=== PATIENT | female | born 1965 | race Caucasian/White ===

== ENCOUNTER 2016-09-14 15:55 | Emergency (ER) | payer BC ==
[2016-09-14 15:59] VITALS: BP 132/82
[2016-09-14 16:29] LABS: CHLORIDE,CL 102 mmol/L (98-107); SODIUM,NA 138 mmol/L (136-145)
[2016-09-14] MEDS ORDERED: cefTRIAXone 1 GM Vial IM ONE (17:07)
--- NOTE | 2016-09-14 17:11 | EDM.PDOC ---
ED HPI GENERAL MEDICAL PROBLEM - General Chief Complaint: General Stated Complaint: fever, sore throat, ear ache Time Seen by Provider: 09/14/16 15:58 Source of Information: Reports: Patient History Limitations: Reports: No limitations - History of Present Illness INITIAL COMMENTS - FREE TEXT/NARRATIVE: Two day history of sore throat, fever, congestion, ear pain. No significant cough. No vomiting/bowel changes. No complaint of UTI symptoms. Feels fatigued. Also somewhat achy in general. Took Advil earlier today. 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) Throat Pain Score (Numeric/FACES): 7 ear ache Pain Score (Numeric/FACES): 7 - Related Data Allergies Allergy/AdvReac Type Severity Reaction Status Date / Time amoxicillin [From Augmentin] Allergy Vomiting Verified 09/14/16 16:17 clavulanic acid Allergy Vomiting Verified 09/14/16 16:17 [From Augmentin] Home Meds: Home Meds Fluticasone Propionate [Flonase Allergy Relief] 2 spray NS DAILY 09/14/16 [ History] Nitrofurantoin Monohyd/M-Cryst [Macrobid 100 mg Capsule] 100 mg PO BID #10 capsule 09/14/16 [Rx] Past Medical History - Infectious Disease History Infectious Disease History: Reports: Chicken pox Social & Family History - Tobacco Use Smoking Status *Q: Never Smoker Second Hand Smoke Exposure: No - Alcohol Use Days Per Week of Alcohol Use: 1 Number of Drinks Per Day: 1 Total Drinks Per Week: 1 Date of Last Drink: 09/12/16 Time of Last Drink: 19:00 - Recreational Drug Use Recreational Drug Use: No ED ROS GENERAL - Review of Systems Review Of Systems: See Below Constitutional: Reports: fever, malaise, fatigue, decreased appetite. Denies: chills, weakness, diaphoresis HEENT: Reports: Ear pain, Rhinitis, Sinus problem, Throat pain. Denies: Dental pain, Ear discharge, Eye discharge, Eye pain, Throat swelling, Vision change Respiratory: Reports: no symptoms. Denies: shortness of breath, wheezing, pleuritic chest pain, cough Cardiovascular: Reports: No symptoms GI/Abdominal: Reports: Decreased appetite. Denies: Abdominal pain, Constipation , Diarrhea, Hematochezia, Vomiting : Reports: no symptoms Musculoskeletal: Reports: other (muscle aches) Skin: Reports: no symptoms Neurological: Reports: no symptoms Psychiatric: Reports: No symptoms ED EXAM, GENERAL - Physical Exam Exam: See Below Exam Limited By: No limitations General Appearance: alert, WD/WN, no apparent distress Eye Exam: bilateral eye: EOMI, normal inspection, PERRL Ears: normal external exam, normal canal, hearing grossly normal, normal TMs Nose: No: nasal swelling, nasal drainage Throat/Mouth: Normal lips, Normal voice, No airway compromise, Other ( pharyngeal erythema noted) Head: atraumatic, normocephalic Neck: normal inspection, supple, non-tender, full range of motion. No: lymphadenopathy (L), lymphadenopathy (R) Respiratory/Chest: no respiratory distress, lungs clear, normal breath sounds, no accessory muscle use Cardiovascular: normal peripheral pulses, tachycardia Peripheral Pulses: 2+: radial (L), radial (R) GI/Abdominal: soft, non tender Back Exam: No: CVA tenderness (L), CVA tenderness (R) Extremities: normal inspection, normal capillary refill Neurological: alert, oriented, normal cognition, normal gait Psychiatric: normal affect, normal mood Skin Exam: Warm, Dry, Intact, Normal color Course - Vital Signs Last Recorded V/S: Last Vital Signs Temp 37.6 C 09/14/16 15:58 Pulse 106 H 09/14/16 16:00 Resp 19 09/14/16 15:58 BP 132/82 09/14/16 15:58 Pulse Ox 99 09/14/16 15:58 - Orders/Labs/Meds Orders: Active Orders 24 hr Category Date Time Status CULTURE URINE [] Routine Lab 09/14/16 16:53 Uncollected INFLUENZA A+B AG SCREEN [] Stat Lab 09/14/16 16:10 Received STREP SCRN A RAPID W CULT CONF [] Stat Lab 09/14/16 16:54 Uncollected Labs: Laboratory Tests 09/14/16 09/14/16 09/14/16 Range/Units 16:10 16:10 16:10 WBC 13.1 H (4.0-10.2) K/uL RBC 4.67 (3.77-5.09) M/uL Hgb 13.3 (11.7-15.5) g/dL Hct 39.7 (34.0-46.0) % MCV 85.0 (84.0-98.0) fL MCH 28.5 (28.2-33.3) pg MCHC 33.5 (31.7-36.0) g/dL RDW 13.9 (11.2-14.1) % Plt Count 192 D (150-350) K/uL Neut % (Auto) 79.6 (45.0-80.0) % Lymph % (Auto) 10.4 (10.0-50.0) % [place] % (Auto) 8.6 (2.0-14.0) % Eos % (Auto) 1.2 (0.0-5.0) % Baso % (Auto) 0.2 (0.0-2.0) % Neut # 10.40 H (1.40-7.00) K/uL Lymph # 1.36 (0.50-3.50) K/uL Roosevelt # 1.13 H (0.00-1.00) K/uL Eos # 0.16 (0.00-0.50) K/uL Baso # 0.02 (0.00-0.20) K/uL Sodium 138 (136-145) mmol/L Potassium 4.0 (3.5-5.1) mmol/L Chloride 102 (98-107) mmol/L Carbon Dioxide 25.9 (21.0-32.0) mmol/L BUN 9 (7-18) mg/dL Creatinine 0.72 (0.51-1.17) mg/dL Est Cr Clr Drug Dosing 81.62 mL/min Estimated GFR (MDRD) > 60 mL/min Glucose 105 (74-106) mg/dL Calcium 8.8 (8.5-10.1) mg/dL Total Bilirubin 0.2 (0.2-1.0) mg/dL AST 12 L (15-37) U/L ALT 21 (12-78) U/L Alkaline Phosphatase 86 (46-116) IU/L Total Protein 7.6 (6.4-8.2) g/dL Albumin 3.8 (3.4-5.0) g/dL Specimen Type Urinvoid Urine Color Yellow Urine Appearance Cloudy Urine pH 6.5 (5.0-9.0) Ur Specific [place] >= 1.030 (1.005-1.030) Urine Protein 30 H (NEGATIVE) mg/dL Urine Glucose (UA) Negative (NEGATIVE) mg/dL Urine Ketones 15 H (NEGATIVE) mg/dL Urine Occult Blood Negative (NEGATIVE) Urine Nitrite Negative (NEGATIVE) Urine Bilirubin Negative (NEGATIVE) Urine Urobilinogen 1.0 (0.2-1.0) E.U./dL Ur Leukocyte Esterase Trace H (NEGATIVE) Urine RBC 0-5 /HPF Urine WBC 10-20 H /HPF Ur Epithelial Cells Many H /LPF Urine Bacteria Moderate H (NONE TO FEW) /HPF - Re-Assessments/Exams Free Text/Narrative Re-Assessment/Exam: 09/14/16 17:23 WBC 13. Negative strep/influenza. UTI noted on UA. No to-go bottles of Macrobid or Septra available. Rocephin IM given. 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 UC ordered. Patient mildly tachycardic. Declined IV fluids. Encouraged to go home/rest/stay hydrated. Suspect both acute viral URI as well as UTI. Departure - Departure Time of Disposition: 17:25 Disposition: Home, Self-Care 01 Condition: good Clinical Impression: UTI, Urinary tract infectious disease, Viral upper respiratory illness Prescriptions: Nitrofurantoin Monohyd/M-Cryst [Macrobid 100 mg Capsule] 100 mg PO BID #10 capsule Forms: ED Department Discharge Additional Instructions: Home, rest, drink plenty of fluids and stay hydrated. OK to take Tylenol or Ibuprofen for pain/fever. inspector set up and lay out Macrobid tomorrow for treatment of UTI. Recommend recheck of urine to make certain UTI completely gone. Follow up otherwise as needed. - My Orders Last 24 Hours: My Active Orders 09/14/16 16:10 INFLUENZA A+B AG SCREEN [RM] Stat 09/14/16 16:53 CULTURE URINE [RM] Routine 09/14/16 16:54 STREP SCRN A RAPID W CULT CONF [] Stat - Assessment/Plan Last 24 Hours: My Active Orders 09/14/16 16:10 INFLUENZA A+B AG SCREEN [RM] Stat 09/14/16 16:53 CULTURE URINE [RM] Routine 09/14/16 16:54 STREP SCRN A RAPID W CULT CONF [] Stat
== END 2016-09-14 17:36 | disposition home or self-care (01) ==
LOC: SUPCPDRO 15:55 → LL.ED 15:55
DX: N39.0 Urinary tract infection, site not specified (principal); J39.9 Disease of upper respiratory tract, unspecified; B97.89 Other viral agents as the cause of diseases classified elsewhere; Z88.1 Allergy status to other antibiotic agents; Z88.8 Allergy status to other drugs, medicaments and biological substances
CPT/HCPCS: 36415; 80053; 81001; 85025; 87081; 87086; 87430; 87804; 96372; 99283; J0696

== ENCOUNTER → 2019-05-18 | Outpatient (CLI) | payer BC | LOC: LL.LAB 09:14 | PROVIDERS: ATTEND Family Medicine | DX: E03.9 Hypothyroidism, unspecified (principal) | CPT/HCPCS: 36415; 84443 ==

== ENCOUNTER 2022-02-04 17:19 | Emergency (ER) | payer BC ==
[2022-02-04] MEDS ORDERED: Sulfamethoxazole/Trimethoprim 800-160 MG Tab PO SCH (18:15)
[2022-02-04] MEDS ORDERED: Phenazopyridine 95 MG Tab PO SCH (18:30)
[2022-02-04 19:13] VITALS: BP 138/79; PULSE 89
== END 2022-02-04 18:49 | disposition home or self-care (01) ==
LOC: LL.ED 17:19
DX: N30.00 Acute cystitis without hematuria (principal); Z88.0 Allergy status to penicillin
CPT/HCPCS: 81001; 87086; 87088; 87186; 99283; 99284